=== PATIENT | female | born 1980 | race African-American/Black ===

== ENCOUNTER 2023-01-16 05:04 | Emergency (ER) | payer OTHER, SELFPAY ==
[2023-01-16 05:05] VITALS: BP 153/88; PULSE 86; RESP 18; TEMP 36.1; O2SAT 99; BMI 37.3
[2023-01-16 08:04] LABS: MANUAL DIFF FLAG NO
[2023-01-16 08:05] LABS: Basophils Percent Auto 0.3 % (0-2); Eosinophils Absolute Auto 0.1 X10*3/uL (0.0-0.4); Eosinophils Percent Auto 1.2 % (0-4); Hematocrit 34.4 % (37.0-47.0); Hemoglobin 10.6 g/dl (12.0-16.0); Imm Gran Abs Auto 0.12 X10*3/uL (0.00-0.03); Lymphocytes Absolute Auto 2.9 X10*3/uL (1.2-4.9); Lymphocytes Percent Auto 23.6 % (20-40); Mean Corpuscular HGB Conc 30.8 g/dl (31.0-35.0); Mean Corpuscular Hemoglobin 20.8 pg (27.0-33.0); Mean Corpuscular Volume 67.6 fL (80.0-98.0); Mean Platelet Volume 9.2 fL (9.4-12.3); Monocytes Absolute Auto 0.6 X10*3/uL (0.1-1.2); Monocytes Percent Auto 4.6 % (2-11); NRBC Pct Auto 0.2 /100WBC (0.0-0.2); Neutrophils Absolute Auto 8.4 x10*3/uL (2.0-8.3); Neutrophils Percent Auto 69.3 % (45-73); Platelet Count 417 X10*3/uL (160-400); Red Blood Count 5.09 X10*6/uL (4.20-5.50); Red Cell Distribution Width 18.1 % (11.0-16.0); White Blood Count 12.1 X10*3/uL (4.8-10.8)
--- NOTE | 2023-01-16 08:17 | ECG_ITS ---
Test Reason : arm tingling Blood Pressure : / mmHG Vent. Rate : 079 BPM Atrial Rate : 079 BPM P-R Int : 146 ms QRS Dur : 068 ms QT Int : 348 ms P-R-T Axes : -02 031 009 degrees QTc Int : 399 ms Normal sinus rhythm Normal ECG No previous ECGs available Referred By: Yaa Weston Electronically Signed By:JOSEPH PARMAR
[2023-01-16 08:22] LABS: Alanine Aminotransferase 16 U/L (0-31); Albumin Level 3.8 g/dL (3.5-5.0); Alkaline Phosphatase 88 U/L (39-117); Anion Gap 16 (12-20); Aspartate Amino Transferase 15 U/L (5-31); Bilirubin Direct 0.1 mg/dL (0.0-0.5); Bilirubin Total 0.5 mg/dL (0.0-1.0); Blood Urea Nitrogen 7 mg/dL (9-16); Calcium 9.2 mg/dL (8.4-10.2); Carbon Dioxide 23 mmol/L (22-29); Chloride 106 mmol/L (96-108); Creatinine Clr Calc Pharmacy 142.3; Estimated Glomerular Filt Rate > 60; Glucose Random 108 mg/dL (60-115); Magnesium 2.1 mg/dL (1.6-2.6); Potassium 4.5 mmol/L (3.3-5.1); Sodium 140 mmol/L (135-145); Total Protein 7.8 g/dL (6.5-8.0)
--- NOTE | 2023-01-16 08:33 | ED_ITS ---
HPI - General Adult General Chief complaint: General Medical Stated complaint: general medical Time Seen by Provider: 01/16/23 07:51 Source: patient Mode of arrival: ambulatory Limitations: no limitations History of Present Illness HPI narrative: Patient is a 42 yo female with a pmh of HT who presents with two days of arm tingling restricted to her left shoulder region. She takes a combination amlodipine/valsartan pill and recently her medication was dispensed in a different color (no med or dose change) and she is wondering if her arm tingling is related to this. She is also endorsing nausea without vomiting since this morning, and a lump on her head. She cannot think of any event that may have caused her arm tingling or head lump. She describes the tingling as crampy and that it comes and goes, but is there more often than not. The tingling does not go down her arm. She denies, headache, dizziness, chest pain, SOB, or loss of sensation. MD complaint: left shoulder tingling Onset (ago): day(s) (2) Location: upper extremity (left shoulder) Radiation: non-radiation Pain Consistency: other (crampy) Relieving factors: none Exacerbating factors: none Associated symptoms: nausea/vomiting Treatments prior to arrival: none Related Data Allergies Allergy/AdvReac Type Severity Reaction Status Date / Time Unable to Assess Allergy Unverified 01/16/23 07:18 Review of Systems Review of Systems: Yes all other systems are reviewed and are negative [facility] Social History Social History Advance Directives: No Advance Directives Information Provided: No Physical Exam ED Vital Signs: Vital Signs - 24 hr 01/16/23 05:05 Temperature 96.9 F Pulse Rate 86 Respiratory Rate 18 Blood Pressure 153/88 H Pulse Oximetry 99 Oxygen Delivery Method Room Air BMI result Body Mass Index 37.3 Appearance: Alert. Oriented X3. No acute distress. Head: normocephalic, atraumatic. Eyes: Pupils equal, round and reactive to light. Neck: Normal inspection. CVS: Normal heart rate and rhythm. Pulses normal. Respiratory: No respiratory distress. Breath sounds normal. Skin: Skin warm and dry. Normal skin color. Normal skin turgor. No rashes. Extremities: Normal inspection of the bilateral shoulders. Full range of motio n of the left shoulder, nontender. Equal and symmetrical strength throughout. Neuro/psych: Oriented X 3. No motor deficit. No sensory deficit. CN II-XII intact. Normal speech and cognition. Course Reevaluation(s) Reevaluation #1: Case discussed with Dr. Medeiros. Stable for discharge home Medical Decision Making Medical Decision Making [facility] Narrative: Patient presented with 2 days of shoulder cramping We ordered basic labs and an EKG all of which were normal. At this time we do not believe the cause is related to any cardiac or neurovascular casues and she is stable for discharge. Differential Diagnosis Differential Diagnoses: The differential diagnosis associated with the presentation includes Parasthesia, nerve injury muscle strain stroke MN muscle strain Lab Data [facility] Lab Attestation statement: I reviewed the patient's lab results. Mild leukocytosis, mild anemia, mild thrombocytosis, no major metabolic derangement 01/16/23 07:59 01/16/23 07:59 Labs: Lab Results 01/16/23 01/16/23 Range/Units 07:59 07:59 WBC 12.1 H (4.8-10.8) X10*3/uL RBC 5.09 (4.20-5.50) X10*6/uL Hgb 10.6 L (12.0-16.0) g/dl Hct 34.4 L (37.0-47.0) % MCV 67.6 L (80.0-98.0) fL MCH 20.8 L (27.0-33.0) pg MCHC 30.8 L (31.0-35.0) g/dl RDW 18.1 H (11.0-16.0) % Plt Count 417 H (160-400) X10*3/uL MPV 9.2 L (9.4-12.3) fL Immature Gran % (Auto) 1.0 H (0.0-0.4) % Neut % (Auto) 69.3 (45-73) % Lymph % (Auto) 23.6 (20-40) % Stanly % (Auto) 4.6 (2-11) % Eos % (Auto) 1.2 (0-4) % Baso % (Auto) 0.3 (0-2) % Lymph # (Auto) 2.9 (1.2-4.9) X10*3/uL Stanly # (Auto) 0.6 (0.1-1.2) X10*3/uL Eos # (Auto) 0.1 (0.0-0.4) X10*3/uL Baso # (Auto) 0.0 (0.0-0.2) X10*3/uL Abs Immat Gran (auto) 0.12 H (0.00-0.03) X10*3/uL Absolute Neuts (auto) 8.4 H (2.0-8.3) x10*3/uL Absolute Nucleated RBC 0.020 H (0.0-0.012) X10*3/uL Nucleated RBC % (auto) 0.2 (0.0-0.2) /100WBC Sodium 140 (135-145) mmol/L Potassium 4.5 (3.3-5.1) mmol/L Chloride 106 (96-108) mmol/L Carbon Dioxide 23 (22-29) mmol/L Anion Gap 16 (12-20) BUN 7 L (9-16) mg/dL Creatinine 0.71 (0.5-1.4) mg/dL Estim Creat Clear Calc 142.3 Estimated GFR > 60 Random Glucose 108 (60-115) mg/dL Calcium 9.2 (8.4-10.2) mg/dL Magnesium 2.1 (1.6-2.6) mg/dL Total Bilirubin 0.5 (0.0-1.0) mg/dL Direct Bilirubin 0.1 (0.0-0.5) mg/dL AST 15 (5-31) U/L ALT 16 (0-31) U/L Alkaline Phosphatase 88 (39-117) U/L Total Protein 7.8 (6.5-8.0) g/dL Albumin 3.8 (3.5-5.0) g/dL Independent Interpretation I performed an independent interpretation of an: EKG Interpretation: EKG w/ normal sinus rhythm, hr 79, normal QTC, normal [place] interval, isolated T- wave inversion in lead [address] segment elevations or depressions. Prescription Management I considered prescription management with: Pain Medication Chronic Conditions Patient?s care impacted by: Hypertension Critical Care Time Critical Care Time Critical Care Time: No Discharge Plan Discharge Clinical Impression: Arm paresthesia, left Patient Disposition: Home, Self-Care Instructions: Paresthesia (ED) Additional Instructions: You presented to the ED for left shoulder parasthesia. We performed labs and an EKG which showed no abnormalities. Continue her antihypertensive medications as prescribed. Symptoms are not thought to be related to this. Please follow-up with your primary care for continuing symptoms. Return to the ED if you develop chest pain, new headache or any concerning symptoms.
[2023-01-16 09:25] VITALS: BP 139/75; PULSE 79; RESP 20; O2SAT 100
== END 2023-01-16 09:26 | disposition home or self-care (01) ==
PROVIDERS: Physician Assistant; Emergency Provider Emergency Medicine
DX: R20.2 Paresthesia of skin (principal); Z79.899 Other long term (current) drug therapy
CPT/HCPCS: 36415; 80048; 80076; 83735; 85025; 93005; 99282; 99283